=== PATIENT | male | born 1940 | race Two or more races ===

== ENCOUNTER 2023-02-23 09:06 | Inpatient (IN) | payer OTHER ==
[~2023-02-23] VITALS: Ht 172.7 cm; Wt 88.9 kg
[2023-02-23] MEDS ORDERED: SODIUM CHLORIDE 0.9% 1,000 ML IV ONE (09:30)
[2023-02-23] MEDS ORDERED: ASPirin 81 mg TAB PO ONE ×2 (09:30→10:15)
[2023-02-23 09:40] LABS: Basophils # (auto) 0.1 10 ^3/uL (0-0.2); Basophils % (auto) 0.3 % (0.0-2.0); Eosinophils # (auto) 0.1 10 ^3/uL (0-0.8); Eosinophils % (auto) 0.4 % (0.0-7.0); Hematocrit 47.7 % (41.0-53.0); Lymphocytes # (auto) 1.2 10 ^3/uL (0.4-5.4); Lymphocytes % (auto) 7.3 % (10.0-50.0); Mean Corpuscular Hgb Conc. 33.6 g/dL (32.0-36.0); Mean Corpuscular Volume 95.3 fL (80.0-100.0); Monocytes # (auto) 1.2 10 ^3/uL (0-1.3); Monocytes % (auto) 7.1 % (0.0-12.0); Neutrophils # (auto) 13.9 10 ^3/uL (1.6-8.6); Neutrophils % (auto) 84.9 % (37.0-80.0); Nucleated Red Blood Cells % 0.1 %; Red Cell Distribution Width 13.7 % (11.8-14.3); White Blood Cell 16.4 10^3/uL (4.4-10.8)
[2023-02-23 09:56] LABS: Calcium 9.1 mg/dL (8.5-10.1); Potassium 4.7 mmol/L (3.5-5.1)
[2023-02-23 09:59] LABS: BUN/Creatinine Ratio 20.3 (10.0-20.0); Bilirubin, Total 1.2 mg/dL (0.2-1.0); Total Protein 7.2 g/dL (6.4-8.2)
[2023-02-23 10:15] VITALS: PULSE 94; RESP 18; O2SAT 95
[2023-02-23] MEDS: SODIUM CHLORIDE 0.9% 1,000 ML IV ONE ×2 (10:15→10:32)
[2023-02-23] MEDS ORDERED: METOPROLOL TARTRATE 1MG/1ML-5ML VIAL IV ONE (10:30)
[2023-02-23 10:39] LABS: INR 1.02 (0.9-1.15); Partial Thromboplastin Time 29.9 SEC (24.5-34.5); Prothrombin Time 10.7 sec (9.3-11.8)
[2023-02-23] MEDS ORDERED: NITROGLYCERIN 0.4 MG SL TAB SL PRN (15:30)
[2023-02-23] MEDS ORDERED: ONDANSETRON HCL 4 MG/2 ML VIAL IV PRN (15:30)
[2023-02-23] MEDS ORDERED: MORPHINE SULFATE INJ 2 MG/ml SYRG IV PRN ×2 (15:30)
[2023-02-23] MEDS ORDERED: ENOXAPARIN SOD 60 MG/0.6 ML SYRINGE SC ONE (16:00)
[2023-02-23 16:54] VITALS: PULSE 100; RESP 20; O2SAT 96
[2023-02-23] MEDS: SODIUM CHLORIDE 0.9% 1,000 ML IV SCH (17:02)
[2023-02-23 17:14] LABS: Urine Bacteria NONE SEEN /hpf (None Seen); Urine Blood Negative /uL (Negative); Urine Clarity Clear (Clear); Urine Color Yellow (Yellow); Urine Protein, UAD TRACE (Negative); Urine Specific Gravity 1.019 (1.001-1.035); Urine Urobilinogen Normal (Negative); Urine WBC 1 /hpf (0 - 3)
[2023-02-23 20:03] VITALS: PULSE 99; RESP 20; O2SAT 94
[2023-02-23] MEDS ORDERED: METOPROLOL TARTRATE 25 MG TAB PO SCH (22:00)
[2023-02-23] MEDS ORDERED: ENOXAPARIN SOD 60 MG/0.6 ML SYRINGE SC SCH (22:00)
[2023-02-23] MEDS: ATORVASTATIN 20 MG TAB PO SCH (22:25)
[2023-02-23] MEDS: FAMOTIDINE 20 MG TAB PO SCH (22:25)
[2023-02-24] MEDS ORDERED: SODIUM CHLORIDE 0.9% 1,000 ML IV ONE (02:00)
[2023-02-24 06:05] LABS: Basophils # (auto) 0 10 ^3/uL (0-0.2); Basophils % (auto) 0.3 % (0.0-2.0); Eosinophils # (auto) 0.1 10 ^3/uL (0-0.8); Eosinophils % (auto) 0.6 % (0.0-7.0); Hematocrit 39.5 % (41.0-53.0); Lymphocytes # (auto) 1.2 10 ^3/uL (0.4-5.4); Lymphocytes % (auto) 9.5 % (10.0-50.0); Mean Corpuscular Hemoglobin 31.7 pg (28.0-32.0); Mean Corpuscular Volume 96.3 fL (80.0-100.0); Monocytes # (auto) 1.3 10 ^3/uL (0-1.3); Monocytes % (auto) 10.9 % (0.0-12.0); Neutrophils # (auto) 9.6 10 ^3/uL (1.6-8.6); Neutrophils % (auto) 78.7 % (37.0-80.0); Nucleated Red Blood Cells % 0.1 %; Red Blood Cells 4.11 10^6/uL (4.5-5.90); Red Cell Distribution Width 13.9 % (11.8-14.3); White Blood Cell 12.3 10^3/uL (4.4-10.8)
[2023-02-24 06:16] LABS: Potassium 5.2 mmol/L (3.5-5.1)
[2023-02-24 06:25] LABS: BUN/Creatinine Ratio 20.4 (10.0-20.0); Calcium 8.3 mg/dL (8.5-10.1); Total Protein 6.2 g/dL (6.4-8.2)
[2023-02-24 06:28] LABS: INR 1.11 (0.9-1.15); Partial Thromboplastin Time 36.1 SEC (24.5-34.5); Prothrombin Time 11.6 sec (9.3-11.8)
[2023-02-24 08:19] VITALS: PULSE 75; RESP 23; O2SAT 98
[2023-02-24] MEDS: SODIUM CHLORIDE 0.9% 1,000 ML IV SCH ×2 (09:38→19:30)
[2023-02-24] MEDS ORDERED: SODIUM CHLORIDE 0.9% 1,000 ML IV SCH (10:30)
[2023-02-24] MEDS: FAMOTIDINE 20 MG TAB PO SCH ×2 (10:42→23:17)
[2023-02-24] MEDS: ASPirin-EC 81 mg tab PO SCH (10:42)
[2023-02-24 15:50] LABS: Cholesterol 109 mg/dL (< 200); HDL Cholesterol 49 mg/dL (40-59); LDL Cholesterol 59 mg/dL (< 100); Triglycerides 82 mg/dL (< 150)
[2023-02-24 23:11] VITALS: PULSE 101; RESP 16; O2SAT 95
[2023-02-24 23:12] VITALS: BP 178/85; PULSE 101; RESP 16; TEMP 98.4; O2SAT 95
[2023-02-24] MEDS: APIXABAN 5 MG TAB PO SCH (23:17)
[2023-02-24] MEDS: ATORVASTATIN 20 MG TAB PO SCH (23:17)
[2023-02-24] MEDS: METOPROLOL TARTRATE 25 MG TAB PO SCH (23:18)
[2023-02-25 05:00] VITALS: BP 94/61; PULSE 77; RESP 16; TEMP 98.2; O2SAT 92
[2023-02-25 06:38] LABS: Basophils # (auto) 0 10 ^3/uL (0-0.2); Basophils % (auto) 0.3 % (0.0-2.0); Eosinophils # (auto) 0.1 10 ^3/uL (0-0.8); Eosinophils % (auto) 0.8 % (0.0-7.0); Hemoglobin 12.8 g/dL (13.5-17.5); Lymphocytes % (auto) 6.7 % (10.0-50.0); Mean Corpuscular Hemoglobin 32.1 pg (28.0-32.0); Mean Corpuscular Hgb Conc. 33.6 g/dL (32.0-36.0); Mean Corpuscular Volume 95.4 fL (80.0-100.0); Monocytes # (auto) 1.7 10 ^3/uL (0-1.3); Monocytes % (auto) 11.4 % (0.0-12.0); Neutrophils # (auto) 11.9 10 ^3/uL (1.6-8.6); Neutrophils % (auto) 80.8 % (37.0-80.0); Red Blood Cells 3.99 10^6/uL (4.5-5.90); Red Cell Distribution Width 13.8 % (11.8-14.3); White Blood Cell 14.8 10^3/uL (4.4-10.8)
[2023-02-25] MEDS: SODIUM CHLORIDE 0.9% 1,000 ML IV SCH (06:39)
[2023-02-25 06:56] LABS: BUN/Creatinine Ratio 21.4 (10.0-20.0); Calcium 8.3 mg/dL (8.5-10.1); Potassium 4.8 mmol/L (3.5-5.1)
[2023-02-25] MEDS ORDERED: ENOXAPARIN SOD 60 MG/0.6 ML SYRINGE SC SCH (07:00)
[2023-02-25] MEDS: FAMOTIDINE 20 MG TAB PO SCH (08:43)
[2023-02-25] MEDS: APIXABAN 5 MG TAB PO SCH (08:43)
[2023-02-25] MEDS: ASPirin-EC 81 mg tab PO SCH (08:43)
[2023-02-25] MEDS: METOPROLOL TARTRATE 25 MG TAB PO SCH (08:44)
[2023-02-25 09:00] VITALS: BP 125/80; PULSE 83; RESP 18; TEMP 97.6; O2SAT 93
[2023-02-25] MEDS ORDERED: LIDOCAINE VISCOUS 2% 15ML UD MT ONE (10:15)
[2023-02-25] MEDS ORDERED: fentaNYL CITRATE 100 MCG/2 ML VL IV ONE (10:15)
[2023-02-25] MEDS ORDERED: MIDAZOLAM HCL 2MG/2ML 2ml VIAL (1mg/ml) IV ONE (10:15)
[2023-02-25] MEDS ORDERED: diphenhdrAMINE HCL 50 MG/1 ML VL IV ONE (10:15)
[2023-02-25] MEDS ORDERED: FLUMAZENIL 0.1 MG/ML INJ 10ML MDV IV ONE (11:15)
[2023-02-25] MEDS ORDERED: NALOXONE HCL 0.4 MG/ML VIAL IV ONE (11:15)
[2023-02-25] MEDS ORDERED: SODIUM CHLORIDE 0.9% 1,000 ML IV SCH (12:15)
[2023-02-25] MEDS ORDERED: SODIUM CHLORIDE 0.9% 200 ML IV ONE (12:15)
[2023-02-25] MEDS ORDERED: AMIO200T33 PO (15:25)
[2023-02-25] MEDS ORDERED: MET25T PO (15:25)
[2023-02-25] MEDS ORDERED: APIX2.5T PO (15:25)
[2023-02-25 17:00] VITALS: BP 118/69; PULSE 87; RESP 18; TEMP 97.4; O2SAT 90
[2023-02-25 17:38] VITALS: BP 121/78; PULSE 67; TEMP 36.3
== END 2023-02-25 18:44 | disposition home or self-care (01) | DRG 310 ==
LOC: ER 09:06 → TELE 15:17 → TELE-WESTW 02-24 21:24
PROVIDERS: ADMIT Hospitalist; ATTEND Hospitalist
PROC: B24BZZ4 Ultrasonography of Heart with Aorta, Transesophageal (ICD-10-PCS; principal; 2023-02-23)
PROC: 5A2204Z Restoration of Cardiac Rhythm, Single (ICD-10-PCS; 2023-02-23)
DX: I48.92 Unspecified atrial flutter (principal); I34.0 Nonrheumatic mitral (valve) insufficiency; I12.9 Hypertensive chronic kidney disease with stage 1 through stage 4 chronic kidney disease, or unspecified chronic kidney disease; R73.9 Hyperglycemia, unspecified; D72.829 Elevated white blood cell count, unspecified; M54.9 Dorsalgia, unspecified; I48.91 Unspecified atrial fibrillation; Z79.01 Long term (current) use of anticoagulants; N18.2 Chronic kidney disease, stage 2 (mild)
CPT/HCPCS: 36415; 71045; 76775; 78582; 80048; 80053; 80061; 81001; 83036; 83690; 83735; 83880; 84443; 84484; 85025; 85379; 85610; 85730; 93005; 93306; 93312; 93970; 96372; 96374; 96375; 99152; G0378; J2250; J2405